=== PATIENT | male | born 1960 | race Caucasian/White ===

== ENCOUNTER 2016-09-01 13:14 | Emergency (ER) | payer OTHER ==
[~2016-09-01] VITALS: Ht 170.2 cm; Wt 82.0 kg
[~2016-09-01 13:14] MED LIST: ATOR20TA PO; CALCCHW9; ENZA40CA PO; MELO15; MULTCAP3; VITA100017 PO; VITA200017 PO; VITA400C70 PO
[2016-09-01 13:15] VITALS: BP 134/82; PULSE 79; RESP 15; TEMP 98.2; O2SAT 98
--- NOTE | 2016-09-01 13:21 | PD ---
Physical Exam Date Seen by Provider: September 01, 2016 Time Seen by Provider: 13:20 Narrative 55 yo male here for mouth pain. Has osteonecrosis of mouth. Has metastasized prostate cancer and has oral surgeon as well as oncologist. Per patient a lot of pain to mouth. Waiting to see when surgery to start. Pain is 8/10. Taking pain meds with no relief. Vitals sign stable. Patient awaiting bed placement. Data Data Last Documented VS Vital Signs Date Time Temp Pulse Resp B/P Pulse Ox O2 Delivery O2 Flow Rate FiO2 09/01/16 13:15 98.2 79 15 134/82 98 MDM Medical Record Reviewed: Yes Supervised Visit with ANDRE: No Truong Ambrosio September 01, 2016 13:21
[2016-09-01] MEDS ORDERED: LUPR30IN IM (13:34)
[2016-09-01] MEDS ORDERED: TRAM50TA PO (13:34)
[2016-09-01] MEDS ORDERED: PRED5TAB PO (13:34)
[2016-09-01] MEDS ORDERED: ZYTI250T PO (13:34)
[2016-09-01] MEDS ORDERED: DENO120P SQ (13:34)
[2016-09-01] MEDS ORDERED: ATOR20TA15 PO (13:34)
[2016-09-01] MEDS ORDERED: CHLO.12%30 SWISH-SPIT (13:34)
[2016-09-01] MEDS ORDERED: ACETAMINOPHEN/HYDROcodone 325 MG/10 MG TAB PO ONE (13:45)
[2016-09-01] MEDS ORDERED: ONDANSETRON ODT 4 MG TAB PO ONE (13:45)
[2016-09-01] MEDS ORDERED: CLINDAMYCIN 150 MG CAP PO ONE (13:45)
[2016-09-01 14:52] LABS: BICARBONATE 30.1 MEQ/L (21.0-32.0); POTASSIUM 3.6 MEQ/L (3.5-5.1)
--- NOTE | 2016-09-01 15:03 | PD ---
HPI Chief Complaint: Pain: Acute or Chronic Time Seen by Provider: 13:29 Travel History International Travel<30 days: No Contact w/Intl Traveler<30days: No Traveled to known affect area: No History of Present Illness HPI Patient is a 55-year-old male with history of metastatic prostate cancer to bone who presents emergency Department with complaint of right sided jaw pain. He's had pain for the better part of 2 weeks in the right jaw notes swelling in the mandible. He was seen by a oral surgeon, Dr. 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 He was placed on tramadol for pain and chlorhexidine solution and spit. The patient has been having persistent pain despite this and presents the ER today for further evaluation. Pain is moderate to severe. He has a history of high opioid tolerance due to history of prolonged metastatic cancer. He seen by oncology at [facility]. He states that his oncologist told this jaw pain was likely due to his Xgeva. No fevers or chills. PFSH Past Medical History Cancer: Yes (prostate) Chemotherapy: Yes (MAY 2016 ON MEDS NOW) Social History Alcohol Use: No Tobacco Use: No Substance Use: No Allergies-Medications (Allergen,Severity, Reaction): Coded Allergies: No Known Allergies (Unverified , 09/01/16) Reported Meds & Prescriptions Reported Meds & Active Scripts Active Reported Lupron Depot Inj Kit (Leuprolide (4 Month) Inj Kit) 30 Mg Syr 30 Mg IM Q112D Atorvastatin (Atorvastatin Calcium) 20 Mg Tab 20 Mg PO HS Zytiga (Abiraterone) 250 Mg Tab 250 Mg PO DAILY Hazardous agent; use appropriate precautions for handling & disposal. Take on an empty stomach, 1 hr before or 2 hrs after food. Swallow whole, do not crush or chew. Xgeva Inj (Denosumab) 120 Mg/1.7 Ml Inj 120 Mg SQ Q28D Prednisone 5 Mg Tab 5 Mg PO BID Chlorhexidine Gluconate (Mouth) Liq (Chlorhexidine Gluconate) 0.12% Soln 15 Ml SWISH-SPIT BID Tramadol (Tramadol HCl) 50 Mg Tab 50 Mg PO Q6H PRN Multivitamins (Multiple Vitamin) Cap Vitamin E-400 (Vitamin E) 400 Units Cap 400 Units PO DAILY Review of Systems Except as stated in HPI: all other systems reviewed are Neg Physical Exam Narrative GENERAL: Well-appearing male in no acute distress SKIN: Focused skin assessment warm/dry. HEAD: Normocephalic. EYES: No scleral icterus. No injection or drainage. ENT: Good overall dental hygiene. Mucous membranes pink and moist. No facial swelling or fluctuance. Along the lingual mucosa of the mandible there is hypertrophic bone formation that is tender to palpation. There is no evidence of open wound, ulceration or lesions. No obvious fluctuance. No malocclusion. NECK: Supple without lymphadenopathy CARDIOVASCULAR: Regular rate and rhythm. RESPIRATORY: No accessory muscle use. MUSCULOSKELETAL: Normal gait NEUROLOGICAL: Awake and alert. Normal speech. PSYCHIATRIC: Appropriate mood and affect; insight and judgment normal. Data Data Last Documented VS Vital Signs Date Time Temp Pulse Resp B/P Pulse Ox O2 Delivery O2 Flow Rate FiO2 09/01/16 15:41 88 18 186/88 98 Room Air 09/01/16 13:15 98.2 Orders Ondansetron Odt (Zofran Odt) (09/01/16 13:45) Acetamin-Hydrocod 325-10 Mg ([place] 10-32 (09/01/16 13:45) Clindamycin (Cleocin) (09/01/16 13:45) Ct Facial Bones W Iv Contrast (09/01/16 ) Basic Metabolic Panel (Bmp) (09/01/16 14:07) Iohexol 350 Inj (Omnipaque 350 Inj) (09/01/16 15:39) Labs Laboratory Tests Test 09/01/16 14:17 Sodium Level 140 MEQ/L Potassium Level 3.6 MEQ/L Chloride Level 101 MEQ/L Carbon Dioxide Level 30.1 MEQ/L Anion Gap 9 MEQ/L Blood Urea Nitrogen 11 MG/DL Creatinine 0.97 MG/DL Estimat Glomerular Filtration 80 ML/MIN Rate Random Glucose 106 MG/DL Calcium Level 8.9 MG/DL MDM Medical Decision Making Medical Screen Exam Complete: Yes Emergency Medical Condition: Yes Medical Record Reviewed: Yes Differential Diagnosis 55-year-old male here with complaint of right mandibular pain. Differential includes osteonecrosis, osteomyelitis, metastatic spread to the mandible, fracture. Narrative Course Patient placed on monitor, given Zofran, [place] and clindamycin. BMP unremarkable. CT of the mandible with contrast showed no abnormalities. I spoke with Dr. Bailey, his oral surgeon and Dr. Dee, his oncologist who will arrange follow-up as an outpatient for further management. Patient will be discharged home with clindamycin, [place] for pain. Diagnosis Primary Impression: Mandibular pain Referrals: Oncologist call for appointment Oral Maxillofacial Surgeon call for appointment Additional Instructions: Pain medications and antibiotics as prescribed. Follow-up with oral surgeon and oncologist as discussed. Med/Other Pt SpecificInfo: Prescription(s) given Scripts Hydrocodone-Acetaminophen ([place])10-325 Mg Tab1 Tab PO Q4H PRN (PAIN) #20 TAB Ref 0 Prov:Arelis Estes MD 09/01/16 Clindamycin 300 Mg Trs076 Mg PO TID 7 Days Ref 0 Prov:Arelis Estes MD 09/01/16 Disposition: 01 DISCHARGE HOME Condition: Stable Arelis Estes MD September 01, 2016 15:03
[2016-09-01] MEDS ORDERED: IOHEXOL 350 MG/ML 10 ML VIAL (for RAD DIAG) IV ONE (15:39)
[2016-09-01 15:41] VITALS: BP 186/88; PULSE 88; RESP 18; O2SAT 98
--- NOTE | 2016-09-01 15:54 | RADRPT ---
EXAM DATE/TIME: 09/01/2016 15:27 [facility] COMPARISON: No previous studies available for comparison. INDICATIONS : Possible osteonecrosis of the mouth. Patient currently on chemo. IV CONTRAST: 72 cc Omnipaque 350 (iohexol) IV RADIATION DOSE: 35.56 CTDIvol (mGy) MEDICAL HISTORY : Prostate cancer with bone mets. SURGICAL HISTORY : None. ENCOUNTER: Initial ACUITY: 1 day PAIN SCALE: 8/10 LOCATION: Bilateral mandible TECHNIQUE: Volumetric scanning of the facial bones was performed. Using automated exposure control and adjustme nt of the mA and/or kV according to patient size, radiation dose was kept as low as reasonably achiev able to obtain optimal diagnostic quality images. FINDINGS: NASAL BONE: The nasal bone and maxillary spine are intact ZYGOMATIC ARCHES: Symmetric without evidence of fracture. SINUSES: The maxillary, ethmoid sinuses are intact. No air-fluid levels seen. NASAL CAVITY: Mild nasal septal deviation to the left. SOFT TISSUES: No radiopaque foreign bodies seen. No soft-tissue swelling is seen. INTRACRANIAL: No intracranial air seen. BONES: The bony structures of the mandible and maxilla are grossly intact. No bony destruction is seen. CONCLUSION: Unremarkable examination. Specifically, the bony structures of the mandible are grossly intact. Mariusz Self MD on September 01, 2016 at 15:49 Board Certified Radiologist. This report was verified electronically.
[2016-09-01] MEDS ORDERED: CLIN1CAP6 PO (16:01)
[2016-09-01] MEDS ORDERED: HYDR-3366 PO (16:01)
[2016-09-01] MEDS ORDERED: ACETAMINOPHEN/HYDROcodone 325 MG/5 MG TAB PO ONE (16:15)
== END 2016-09-01 16:18 | disposition home or self-care (01) ==
LOC: NEPD 13:14
DX: G89.3 Neoplasm related pain (acute) (chronic) (principal); C61 Malignant neoplasm of prostate; C79.51 Secondary malignant neoplasm of bone
CPT/HCPCS: 70487; 80048; 99285; Q9967

== ENCOUNTER 2016-10-18 12:20 | Emergency (ER) | payer OTHER ==
[~2016-10-18] VITALS: Ht 170.2 cm; Wt 78.0 kg
[~2016-10-18 12:20] MED LIST changes: -ATOR20TA PO; +ATOR20TA15 PO; -CALCCHW9; +CHLO.12%30 SWISH-SPIT; +CLIN1CAP6 PO; +DENO120P SQ; -ENZA40CA PO; +HYDR-3366 PO; +LUPR30IN IM; -MELO15; +PRED5TAB PO; +TRAM50TA PO; -VITA100017 PO; -VITA200017 PO; +ZYTI250T PO
[2016-10-18 12:22] VITALS: BP 149/84; PULSE 90; RESP 24; TEMP 98.6; O2SAT 98
[2016-10-18] MEDS ORDERED: ONCETAB7 PO (12:53)
[2016-10-18] MEDS ORDERED: VITATAB56 PO (12:53)
[2016-10-18] MEDS ORDERED: ONDANSETRON ODT 4 MG TAB PO ONE (13:00)
[2016-10-18] MEDS ORDERED: HYDROmorphone HCL 4 MG TAB PO ONE (13:00)
--- NOTE | 2016-10-18 13:32 | PD ---
HPI Chief Complaint: Pain: Acute or Chronic Time Seen by Provider: 12:36 Travel History International Travel<30 days: No Contact w/Intl Traveler<30days: No Traveled to known affect area: No History of Present Illness HPI Patient is a 55 year old with history of metastatic prostate cancer to the bone , presents to emergency with complaints of chronic pain to his right jaw. Patient was seen and operated by an oral surgeon, as he had osteonecrosis of the mandible from his prostate cancer treatment. Patient had surgery to remove area of osteonecrosis and reports that he still has alot of pain to his jaw. He did follow up with Dr. Rocha on and the plan is to make him a mouth guard so his tongue doesn't irritate his right jaw. Reports that he was given a prescription for [place] 10/325 - reports that this is not helping with his pain. Patient here for symptomatic relief of his jaw pain. Reports that he has been trying to take ibuprofen without any relief of symptoms. Patient with no fevers or chills, reports intermittent nausea, no vomiting. No other complaints. PFSH Past Medical History Cancer: Yes (prostate) High Cholesterol: Yes Chemotherapy: Yes (MAY 2016 ON MEDS NOW) Past Surgical History Oral Surgery: Yes (right jaw osteonecrosis ) Social History Alcohol Use: No Tobacco Use: No Substance Use: No Allergies-Medications (Allergen,Severity, Reaction): Coded Allergies: No Known Allergies (Unverified , 10/18/16) Reported Meds & Prescriptions Reported Meds & Active Scripts Active Ms Contin (Morphine Sulfate) 15 Mg Tab 15 Mg PO BID Reported Once Daily (Multivitamin) 1 Each Tablet 1 Tab PO DAILY Vitamin D-400 (Cholecalciferol) 400 Unit Tab 400 Units PO DAILY Lupron Depot Inj Kit (Leuprolide (4 Month) Inj Kit) 30 Mg Syr 30 Mg IM Q112D Atorvastatin (Atorvastatin Calcium) 20 Mg Tab 20 Mg PO HS Zytiga (Abiraterone) 250 Mg Tab 250 Mg PO DAILY Hazardous agent; use appropriate precautions for handling & disposal. Take on an empty stomach, 1 hr before or 2 hrs after food. Swallow whole, do not crush or chew. Prednisone 5 Mg Tab 5 Mg PO BID Chlorhexidine Gluconate (Mouth) Liq (Chlorhexidine Gluconate) 0.12% Soln 15 Ml SWISH-SPIT BID Tramadol (Tramadol HCl) 50 Mg Tab 50 Mg PO Q6H PRN Review of Systems General / Constitutional: No: Fever Eyes: No: Visual changes HENT: Positive: Other (jaw pain), No: Headaches Cardiovascular: No: Chest Pain or Discomfort Respiratory: No: Shortness of Breath Gastrointestinal: No: Abdominal Pain Genitourinary: No: Dysuria Musculoskeletal: No: Pain Skin: No Rash Neurologic: No: Weakness Psychiatric: No: Depression Endocrine: No: Polydipsia Hematologic/Lymphatic: No: Easy Bruising Physical Exam Narrative GENERAL: moderate distress SKIN: Focused skin assessment warm/dry. HEAD: Atraumatic. Normocephalic. EYES: Pupils equal and round. No scleral icterus. No injection or drainage. ENT: No nasal bleeding or discharge. Mucous membranes pink and moist. No signs on infection NECK: Trachea midline. No JVD. CARDIOVASCULAR: Regular rate and rhythm. No murmur appreciated. RESPIRATORY: No accessory muscle use. Clear to auscultation. Breath sounds equal bilaterally. GASTROINTESTINAL: Abdomen soft, non-tender, nondistended. Hepatic and splenic margins not palpable. MUSCULOSKELETAL: No obvious deformities. No clubbing. No cyanosis. No edema. NEUROLOGICAL: Awake and alert. No obvious cranial nerve deficits. Motor grossly within normal limits. Normal speech. PSYCHIATRIC: Appropriate mood and affect; insight and judgment normal. Data Data Last Documented VS Vital Signs Date Time Temp Pulse Resp B/P Pulse Ox O2 Delivery O2 Flow Rate FiO2 10/18/16 16:04 20 10/18/16 15:02 83 160/95 97 Room Air 10/18/16 12:22 98.6 Orders Hydromorphone (Dilaudid) (10/18/16 13:00) Ondansetron Odt (Zofran Odt) (10/18/16 13:00) Ketorolac Inj (Toradol Inj) (10/18/16 14:45) Hydromorphone Pf Inj (Dilaudid Pf Inj) (10/18/16 14:45) MDM Medical Decision Making Medical Screen Exam Complete: Yes Emergency Medical Condition: Yes Medical Record Reviewed: Yes Interpretation(s) Vital Signs Date Time Temp Pulse Resp B/P Pulse Ox O2 Delivery O2 Flow Rate FiO2 10/18/16 12:36 10/18/16 12:22 98.6 90 24 149/84 98 Room Air Differential Diagnosis Patient with history of metastatic prostate cancer with osteonecrosis of his mandible status post removal of osteonecrosis presents to ER for pain management Narrative Course Patient is a 56 year old male with history of metastatic prostate cancer who developed osteonecrosis of his mandible after being on cancer treatment, is status post removal of osteonecrosis presents to ER for pain management. Patient with no signs of infection today. Patient with no fevers or chills at home. He has been taking 800mg of ibuprofen and norco 10/325mg with no relief of symptoms. He has an appointment with pain management doctors from [facility] where his oncologist is on for management of his pain. Patient requesting relief of pain until he can be see by pain management on patient with no relief with po dilaudid 4mg Patient did have relief with dilaudid 1mg IM along with toradol 60mg IM I did talk to oncologist automation test developer from [facility], suggest that I discharge patient home with long acting opiate MS Contin and use his norco for breakthrough pain until he can be seen by pain management on . Patient with comfort with plan of care. Will discharge patient home with outpatient follow-up. Diagnosis Primary Impression: Mandibular pain Patient Instructions: General Instructions, Narcotic given in the ED Additional Instructions: Please follow-up with the automobile painter on as scheduled Please do not drive operate heavy machinery while taking narcotic pain medications Returns to emergency room as needed or if symptoms worsen or persist Med/Other Pt SpecificInfo: Prescription(s) given Scripts Morphine ER (Ms Contin)15 Mg Tab15 Mg PO BID #12 TAB Ref 0 Prov:Analy Wilson DO 10/18/16 Disposition: 01 DISCHARGE HOME Condition: Stable Analy Wilson DO Oct 18, 2016 13:32
[2016-10-18] MEDS ORDERED: HYDROmorphone HCL PF 1 MG/ML VIAL IV PUSH ONE (14:45)
[2016-10-18] MEDS ORDERED: KETOROLAC TROMETHAMINE 60 MG/2 ML (IM) VIAL IM ONE (14:45)
[2016-10-18 15:02] VITALS: BP 160/95; PULSE 83; RESP 22; O2SAT 97
[2016-10-18 16:04] VITALS: RESP 20
[2016-10-18] MEDS ORDERED: MS C15TA2 PO (16:21)
== END 2016-10-18 17:33 | disposition home or self-care (01) ==
LOC: NEPC 12:20
DX: R68.84 Jaw pain (principal); G89.29 Other chronic pain; C61 Malignant neoplasm of prostate; M87.9 Osteonecrosis, unspecified; E78.00 Pure hypercholesterolemia, unspecified; Z79.899 Other long term (current) drug therapy
CPT/HCPCS: 96372; 96374; 99284; J1170; J1885